=== PATIENT | female | born 1965 | race Caucasian/White ===

== ENCOUNTER 2025-02-19 00:05 | Emergency (ER) | payer OTHER, SELFPAY ==
[2025-02-19] VITALS (12 sets, daily range): BP systolic 148; BP diastolic 100; PULSE 60–137; RESP 12–29; TEMP 35.9–36.4; O2SAT 90–97
--- NOTE | ~2025-02-19 | CT_ITS ---
EXAMINATION: CTA chest PE protocol DATE: 02/19/2025 03:47 INDICATION: Shortness of breath. TECHNIQUE: Computed tomography angiography (CTA) of the chest was performed with 100 mL Omnipaque-350 intravenous contrast timed to evaluate the pulmonary arteries. Coronal maximum intensity projection 3D-reconstructions were created by the technologist. Automated exposure control and iterative reconstruction technique were employed. The dose-length product was 479.97 mGy-cm. COMPARISON: None. FINDINGS: The lungs demonstrate diffuse groundglass opacities. There is a 4 mm nodule in lingula, likely benign. No pleural effusion. Cardiomegaly is noted. No pericardial effusion. There is no pulmonary embolus. There are changes of anterior fusion procedure in cervical spine. There are bridging endplate osteophytes at multiple levels in the spine, consistent with diffuse idiopathic skeletal hyperostosis (DISH). There is mild thoracic spondylosis. IMPRESSION: 1. No pulmonary embolus. 2. Diffuse groundglass opacities in the lungs, consistent with atelectasis versus mild pulmonary edema versus atypical pneumonia. Reviewed, dictated and finalized at location E. NOTCHER IMPRESSION: 1. No pulmonary embolus. 2. Diffuse groundglass opacities in the lungs, consistent with atelectasis vers us mild pulmonary edema versus atypical pneumonia.
--- NOTE | ~2025-02-19 | XR_ITS ---
Examination: XR chest 1V portable Clinical History: SHORTNESS OF BREATH Comparison: None Technique: Portable AP Findings: Heart size normal. Mildly increased interstitial markings. No acute bony abnormality. IMPRESSION: 1. Mild interstitial pulmonary edema and/or pneumonitis. Reviewed, dictated and finalized at location R. RAPHIC INFORMATION SYSTEM ANALYST
--- NOTE | 2025-02-19 00:10 | ED_ITS ---
HPI - Arrhythmia/Palpitations General Chief Complaint: Arrhythmia/Palpitations Stated Complaint: feelings of irregular heart rate Time Seen by Provider: 02/19/25 00:35 History of Present Illness HPI narrative: 59-year-old white previous history of an episode of atrial fibrillation about 4 years ago, apparently converted in the hospital and she was not started on any anticoagulation. At some point in the last few years she was started on Entresto for CHF but has never been on furosemide. January 31 she was admitted to [facility] for a rapid heartbeat, and was found to have a potassium of 2.2 so her potassium was replenished her heart rate controlled and she had an echo, a treadmill thallium stress test, and ?other studies? and was told they were all okay and she was taken off of her chlorthalidone discharge. She was not started on any anticoagulation. She had a previous heart cath 2018 and was told it was normal. Tonight she developed palpitations about 3 hours ago and reports her heartbeat was very fast, irregular, and some of the beats were strong and some of the beats were so weak. She has not had any chest pain, she has felt a little bit short of breath. She has noted some chronic swelling in her lower extremities but concern eyes orthopnea, PND, or dyspnea on exertion. She also denies any recent fever, chills, sinus drainage, sore throat, cough, chest pain, denies any recent abdominal pain, nausea vomiting, diarrhea constipation, dysuria urgency or frequency Related Data Allergies Allergy/AdvReac Type Severity Reaction Status Date / Time Sulfa (Sulfonamide Allergy Intermediate Rash Verified 02/19/25 00:12 Antibiotics) Review of Systems 2 Review of Systems: ROS is negative except as in HPI Exam 2 Narrative: pleasant, well-appearing, overweight, articulate, no acute distress Const: General: cooperative, healthy appearing, comfortable, no acute distress, well developed, alert, awake and Physically active O rientation/consciousness: patient oriented x3 HENMT: Head: normal to inspection, normocephalic and atraumatic Ears: h earing grossly normal bilaterally and external ears normal Face/Nose/Sinus: N ormal external nose present, Normal nares present, Normal nasal mucous membranes and turbinates present and normal facial exam Face and sinus: normal facial exam Mouth: Yes Normal oral and palatal mucosa present, Yes lip normal, Yes tongue normal, Yes oropharynx normal and Yes moist mucous membranes Teeth and gingiva: dentition normal Throat: posterior oropharynx normal and tonsils normal ( erythematous) Eyes: General: appearance normal, both eyes and all related structures A lignment and Position: alignment normal and position normal Periorbital: p eriorbital findings normal Eyelids: eyelids normal Conjunctivae: c onjunctivae normal Sclera: sclerae normal Cornea: corneas normal P upils: Equal, round and reactive pupils present EOM: EOMs intact bilaterally Neck: Neck: normal visual inspection, full ROM and no lymphadenopathy Chest: Chest palpation & inspection: normal inspection of the chest Resp: Effort & Inspection: normal respiratory effort, able to speak in complete sentences, no audible wheezes, no respiratory distress and no use of accessory muscles Auscultation: clear to auscultation bilaterally Cardio: Jugular venous distension: no JVD Rate: abnormal rate and tachycardic Rhythm: abnormal rhythm and abnormal rhythm irregularly irregular GI: Inspection: normal to inspection GI Palp: No abdominal tenderness, No Tenderness to palpation present (GI), No Guarding due to palpation present (GI), No No hepatosplenomegaly present, No Palpable mass present and No Rebound tenderness present Skin: General skin exam: normal color, no rashes or lesions noted, elasticity normal and turgor normal Neuro: General: patient oriented x3, gait normal, tone normal and moves all extremities Cranial nerves: Yes CN's II-XII intact bilaterally, Yes Equal, round and reactive pupils present and Yes Bilaterally intact EOM present S peech: normal speech Motor exam (neuro): 5/5 motor strength present throughout and Normal motor muscle tone present throughout Sensory Exam: n ormal sensation Extrem: General: normal to inspection, normal exam except as noted and pedal edema present (Patient has 1 to 2+ pitting edema of the lower extremities) Psych: Appearance: grossly normal and well kempt Mental Status: mental status grossly normal Speech and movement: Normal speech and movement present Affect: normal affect Attitude: cooperative Thought process: Normal thought process present Course Course Emergency Course: Differential diagnosis includes but is not limited to atrial fibrillation with RVR, CHF, obstructive sleep apnea, hypoxia, PE, TSH, hypokalemia, fluid overload, renal failure, valvular heart disease 12:10 a.m. EKG shows atrial fib with RVR, rate 145. There is a left axis deviation, there is a subtle joint abnormality consistent with pulmonary disease, there is nonspecific STT wave abnormalities. Will give 20 mg diltiazem IV bolus, and then start her on a diltiazem drip. Will also heparinized her Patient converted into sinus rhythm prior to diltiazem and we held off on giving it and also hold off on the heparin did 1 1:07 a.m. EKG after spontaneous conversion shows sinus rhythm, rate of 81, left axis deviation, nonspecific ST T-wave abnormalities Workup showed normal CBC with an H&H of 11.8 and 36.7 and a white count of 7800. INR 0.9 CMP is normal with potassium of 3.5. AST is 51, ALT is 38, both just barely elevated. ProBNP is 269, essentially normal UA is unremarkable D-dimer is minimally elevated at .94, will go ahead and get CT angio chest to rule out PE as a source of her AFib Initial troponin was 2 hour troponin was I discussed atrial fib, concomitant risk of stroke, risks and benefits of anticoagulation, however at this point it appears she has had only 2 or 3 short episodes of AFib in the last 5 years, so risk of stroke is low. Also she had not recent negative echo, negative treadmill thallium stress test. And will hold off on anticoagulation unless that CTA shows PE. We will give her potassium as her K is only 3.5, and will put her on a potassium supplement. Will also hold off on initiating anti dysrhythmic for the same reason that episodes have been rare, short and self limited. Medical decision making complexity and risk is high Vital Signs Vital signs: Vital Signs Temperature 36.4 C 02/19/25 00:05 Pulse Rate 137 H 02/19/25 00:05 Respiratory Rate 19 02/19/25 00:05 Blood Pressure 148/100 H 02/19/25 00:05 Pulse Oximetry 95 02/19/25 00:05 Oxygen Delivery Room Air 02/19/25 00:05 Temperature 35.9 C L 02/19/25 04:35 Pulse Rate 65 02/19/25 04:00 Respiratory Rate 20 02/19/25 04:00 Blood Pressure 148/100 H 02/19/25 00:05 Pulse Oximetry 90 02/19/25 04:00 Oxygen Delivery Room Air 02/19/25 00:05 MDM - Arrhythmia/Palpitations Lab Data 02/19/25 00:49 02/19/25 00:49 Labs: Lab Results 02/19/25 02/19/25 Range/Units 00:49 03:01 WBC 7.8 (4.8-10.8) K/mm3 RBC 4.09 L (4.20-5.40) M/mm3 Hgb 11.8 L (12.0-15.0) g/dL Hct 36.7 (35.0-49.0) % MCV 89.7 (78.0-102.0) fL MCH 28.9 (27.0-31.0) pg MCHC 32.2 (32-36) g/dL RDW 13.7 (11.6-14.4) % Plt Count 322 (150-420) K/mm3 MPV 10.7 (9.2-11.8) fl Immature Gran % (Auto) 0.3 H (0.0-0.0) % Neut % (Auto) 43.3 L (50.0-70.0) % Lymph % (Auto) 39.1 (18.0-42.0) % [place] % (Auto) 10.7 (2.0-11.0) % Eos % (Auto) 5.8 (1.0-6.0) % Baso % (Auto) 0.8 (0.0-1.0) % Lymph # (Auto) 3.06 (1.10-4.50) K/mm3 [place] # (Auto) 0.84 (0.10-0.90) K/mm3 Eos # (Auto) 0.45 (0.02-0.50) K/mm3 Baso # (Auto) 0.06 (0.00-0.10) K/mm3 Abs Immat Gran (auto) 0.02 H (0.00-0.00) K/mm3 Absolute Neuts (auto) 3.39 (1.70-7.20) K/mm3 Absolute Nucleated RBC 0.00 (0.00-0.00) K/mm3 Nucleated RBC % 0.0 (0-0.0) % PT 10.4 (9.50-12.1) Seconds INR 0.9 APTT 27.5 (23.9-30.70) Sec D-Dimer 0.94 H (0.19-0.50) mg/L Sodium 144 (137-145) mmol/L Potassium 3.5 (3.4-5.0) mmol/L Chloride 108 H (98-107) mmol/L Carbon Dioxide 26 (22-30) mmol/L Anion Gap 10 (4-12) mmol/L BUN 13 (7-17) mg/dL Creatinine 0.77 (0.7-1.0) mg/dL Estim Creat Clear Calc 72 ml/min Estimated GFR > 60 (59 - ) Glucose 143 H (65-110) mg/dL Calculated Osmolality 300 H (285-295) mOsm/kg Calcium 9.0 (8.4-10.2) mg/dL Total Bilirubin 0.6 (0.2-1.3) mg/dL AST 51 H (14-36) U/L ALT 38 H (6-35) U/L Alkaline Phosphatase 77 (38-126) U/L Troponin I < 0.012 < 0.012 (0.000-0.034) ng/mL NT-Pro-B Natriuret Pep 269 H (19.9-100) pg/mL Total Protein 7.4 (6.3-8.2) g/dL Albumin 4.1 (3.5-5.1) g/dL Urine Color Light yellow (Yellow) Urine Appearance Clear (Clear) Urine pH 6.5 (5.0-8.0) Ur Specific [place] <= 1.005 L (1.010-1.020) Urine Protein Negative (Negative) Urine Glucose (UA) Negative (Negative) Urine Ketones Negative (Negative) Ur Blood (Man) Negative (Negative) Urine Nitrate Negative (Negative) Urine Bilirubin Negative (Negative) Urine Urobilinogen 0.2 (0.2-1.0) mg/dL Leukocyte Esterase Rfl Negative (Negative) LEONIE/UL Discharge Plan Discharge Clinical Impression: Palpitations, Ventricular premature beats Atrial fibrillation Qualifiers: Atrial fibrillation type: paroxysmal Qualified Code(s): I48.0 - Paroxysmal atrial fibrillation Patient Disposition: Home Condition: Stable Instructions: Antibiotic Form, A-fib (Atrial Fibrillation) (ED), Heart Palpitations (ED) Additional Instructions: No heavy exertion Begin the potassium as prescribed Return to the emergency department if you go back in to atrial fibrillation with a fast heartbeat Follow-up with your chemists this week Patient Language: Irish Prescriptions: New potassium chloride 20 mEq packet 40 meq PO DAILY Qty: 30 0RF Follow-up/Referrals: UNKNOWN,DOCTOR [Primary Care Provider] Time of Disposition: 04:29
--- NOTE | 2025-02-19 00:35 | ECG_ITS ---
Test Date: 2025-02-19 00:10:32 Measurements Intervals [place] Rate: 145 P: 0 [place]: 0 QRS: -36 QRSD: 93 T: 130 QT: 284 QTc: 441 Interpretive Statements ATRIAL FIBRILLATION WITH RAPID VENTRICULAR RESPONSE LEFT AXIS DEVIATION [QRS AXIS < -30] PATTERN CONSISTENT WITH PULMONARY DISEASE MINIMAL VOLTAGE CRITERIA FOR LVH, CONSIDER NORMAL VARIANT [MEETS CRITERIA IN ONE OF: R(aVL), S(V1), R(V5), R(V5/V6)+S(V1)] ST DEVIATION AND MODERATE T-WAVE ABNORMALITY, CONSIDER LATERAL ISCHEMIA [-0.1+ mV T-WAVE IN I/aVL/V5/V6] No previous ECG available for comparison Electronically Signed On 02-19-2025 06:43:14 HEALTH UNIT COORDINATOR by Vinicius Shaikh M.D.
--- OUTSIDE RECORDS SUMMARY | 2025-02-19 00:47 | XMS_ITS | Clinical Summary ---
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 Gender Identity Not on file Sexual Orientation Not on file Plan of Treatment Health Maintenance Due Date Last Done Comments Pap Smear 08/06/1984 Cervical Cancer Screening (CCS) 08/06/1993 HPV/Cotest 08/06/1993 Cologuard 08/06/2008 Immunochemical Fecal Occult Blood 08/06/2008 Zoster Immunization (2 of 2) 08/10/2020 06/15/2020 Influenza Immunization (#1) 11/29/20240 05/2020, 01/07/2019, 01/07/2019, Additional history exists SARS-COV-2 Immunization ( season) 2024 12/19/2020, 11/28/2020 Mammogram 03/02/2025 03/02/2024, 05/2023, 08/21/2023, Additional history exists Colonoscopy 05/22/2032 05/22/2022 Colorectal Cancer Screening 05/22/2032 Respiratory Syncytial Virus (RSV) Immunization (Adult) (1 - 1-dose 75+ series) 08/06/2038 DTaP/Tdap/Td Immunization Discontinued 2020, 04/10/2010, 06/01/1993 TdaP Immunization Completed 07/11/2020, 04/10/2010 Hepatitis C Virus (HCV) Screening Completed 09/11/2021 Pneumococcal Immunization (50+ years) Completed 09/26/2022 Pneumococcal Immunization Combined Discontinued 09/26/2022 Hepatitis B Immunization Aged Out No longer eligible based on patient's age to complete this topic Human Papillomavirus (HPV) Immunization Aged Out No longer eligible based on patient's age to complete this topic Meningococcal Immunization (ACWY) Aged Out No longer eligible based on patient's age to complete this topic Rotavirus Immunization Aged Out No lo nger eligible based on patient's age to complete this topic
--- OUTSIDE RECORDS SUMMARY | 2025-02-19 00:47 | XMS_ITS | Encounter Summary ---
Author Organization [facility] Address [address] [place] [address] Phone Care Team Providers Care Lead Maintenance Technician Name Role Phone Identified, No Provider Primary Care Provider Un available Encounter Details Date Type Department Care Team (Late st Contact Info) Description 04/07/2023 Scanned Document [facility] Provider, Interface Default Social History Tobacco Use Types Packs/Day Years Used Date Smoking Tobacco: Never Smokeless Tobacco: Never Alcohol Use Standard Drinks/Week Comments Never 0 (1 standard drink = 0.6 oz pur e alcohol) Comments Unknown Sex and Gender Information Value Date Recorded Sex Assigned at Not on file 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
--- OUTSIDE RECORDS SUMMARY | 2025-02-19 00:47 | XMS_ITS | Clinical Summary ---
Author Organization [facility] Address [address] [place] [address] Phone Care Team Providers Care Manager Roofing Name Role Phone Identified, No Provider Primary Care Provider Un available Allergies Active Allergy Reactions Criticality Noted Date Comments Pregabalin GI upset,Dizzy Medium 03/27/2021 Sulfa (Sulfonamide Antibiotics) Rash Low 03/01 Medications omeprazole 20 mg delayed release capsule Take 20 mg by mouth 2 (two) times daily Active citalopram (CELEXA) 40 mg tablet Take 40 mg by mouth every day Active linaCLOtide (LINZESS) 72 mcg capsule Take 72 mcg by mouth as needed X 1 dose (IBS) Take on an empty stomach at least 30 minutes prior to a meal at approximately the same time each day Active levothyroxine 100 mcg tablet Take 100 mcg by mouth every day Active furosemide (LASIX) 40 mg tablet Take 40 mg by mouth every day Active sacubitriL-veronica sartan (ENTRESTO) 24-26 mg tablet Take 1 tablet by mouth 2 (two) times daily Active phenazopyridin e (PYRIDIUM) 100 mg tabletIndicati ons:Right ureteral stone Take 1 tablet (100 mg total) by mouth 3 (three) times daily as needed (Dysuria) 12 tablet 3 Active tamsulosin (FLOMAX) 0.4 mg extended release capsuleIndicat ions:Right ureteral stone,Complica ricci UTI (urinary tract infection) Take 1 capsule (0.4 mg total) by mouth every day 30 capsule 3 Active albuterol HFA 90 mcg/actuation inhaler Take 2 puffs inhaled by mouth every 6 hours as needed 2 Active celecoxib (CELEBREX) 100 mg capsule Take 100 mg by mouth every 24 hours 3 Active Active Problems Problem Noted Date Diagnosed Date Right ureteral stone 03/27/2023 Complicated UTI (urinary tract infection) 2022 Immunizations Immunization Administration Dates Next Due Td - Adult (PF) 06/01/1993 Social History Tobacco Use Types Packs/Day Years Used Date Smoking Tobacco: Never Smokeless Tobacco: Never Tobacco Cessation:Counseling Given: Not Answered Alcohol Use Standard Drinks/Week Comments Never 0 (1 standard drink = 0.6 oz pur e alcohol) Comments Unknown Sex and Gender Information Value Date Recorded Sex Assigned at Not on file Legal Sex Female 7:17 AM CALL CENTER CONSULTANT Gender Identity Not on file Sexual Orientation Not on file Last Filed Vital Signs Vital Sign Reading Time Taken Comments Blood Pressure 175/65 03/28/2023 3:40 PM CALL CENTER CONSULTANT Pulse 72 03/28/2023 3:40 PM CALL CENTER CONSULTANT Temperature 37.5 C (99.5 F) 03/28/2023 3:40 PM CALL CENTER CONSULTANT Respiratory Rate 20 03/28/2023 3:40 PM CALL CENTER CONSULTANT Oxygen Saturation 97% 03/28/2023 3:40 PM CALL CENTER CONSULTANT Inhaled Oxygen Concentration - - Weight 90.7 kg (200 lb) 03/27/2023 12:31 AM CALL CENTER CONSULTANT Height 162.6 cm (5' 4) 04/02/2023 2:40 PM CALL CENTER CONSULTANT Body Mass Index 34.33 03/27/2023 12:31 AM CALL CENTER CONSULTANT Plan of Treatment Health Maintenance Due Date Last Done Comments Diagnostic Colonoscopy 1963 MMR Vaccines (1 of 1 - Standard series) 08/06/1964 Lipid Panel 1983 Pap Smear 08/06/1984 Cervical Cancer Screening 08/06/1993 HPV/Co-Testing 08/06/1993 CT Colonography 08/06/2008 Colorectal Cancer Screening 08/06/2008 FIT-DNA (Cologuard) 08/06/2008 Fecal Immunochemical Testing (FIT) 08/06/2008 Fecal Occult Blood (FOBT) 08/06/2008 Flexible Sigmoidoscopy 08/06/2008 Screening Colonoscopy 08/06/2008 HCPOA Document on File 08/06/2013 Zoster (Shingles) Vaccine (2 of 2) 08/10/2020 06/15/2020 Breast Cancer Screening 12/24/2022 12/25/19 22, 12/14/2020, 06/02/2020, Additional history exists Depression Screening 04/02/2024 04/02/2023 COVID-19 Vaccine ( - season) 2024 12/19/2020, 11/28/2020 Influenza Vaccine (#1) 2024 1, 01/07/2019, 01/08/2018, Additional history exists Screening for Diabetes 03/28/2026 3, 03/28/2023, 03/27/2023, Additional history exists DTaP/Tdap/Td Vaccines (3 - Td or Tdap) 07/11/2030 07/11/2020, 04/10/2010, 06/01/1993 RSV Vaccine (60+/) (1 - 1-dose 75+ series) 08/06/2038 Pneumococcal Vaccines (50+) Completed 09/26/2022 HIB Vaccines Aged Out No longer eligi ble based on patient's age to complete this topic HPV Vaccines Aged Out No longer eligi ble based on patient's age to complete this topic Hepatitis A Vaccines Aged Out No long er eligible based on patient's age to complete this topic Hepatitis B Vaccines Aged Out No long er eligible based on patient's age to complete this topic IPV Vaccines Aged Out No longer eligi ble based on patient's age to complete this topic Meningococcal B Vaccine Aged Out No l onger eligible based on patient's age to complete this topic Meningococcal Vaccine (ACWY) Aged Out No longer eligible based on patient's age to complete this topic Rotavirus Vaccines Aged Out No longer eligible based on patient's age to complete this topic Medical Devices Implanted Type Area Upstairs Maid Device Identifier Shelf Expiration Date Model / Serial / Lot Stent Ureteral Firm [id number] Bx/1 - S. Implanted:Qty : 1 on 03/27/2023 by Nicolas Saldaña DO at [facility] LOCATION STENT, URETERAL Right: Ureter 12/25/2025 [id number] / . / [id number] Procedures Procedure Name Priority Date/Time Associated Diagnosis Comments COMPREHENSIVE METABOLIC PANEL Routine 03/28/2023 4:16 AM CALL CENTER CONSULTANT from Last 3 Months or Most Recently Relevant to Health Maintenance Results * (ABNORMAL) COMPREHENSIVE METABOLIC PANEL (03/28/2023 4:16 AM CALL CENTER CONSULTANT) CALCIUM 8.8(L) 8.9 - 10.6 mg/dL [facility] GLUCOSE 175(H) 74 - 100 mg/dL [facility] BUN 15 10 - 20 mg/dL [facility] CREATININE 0.70 0.55 - 1.02 mg/dL [facility] TOTAL PROTEIN 7.1 6.0 - 8.0 g/dL [facility] ALBUMIN 3.1(L) 3.5 - 5.0 g/dL [facility] BILIRUBIN, TOTAL 0.7 0.2 - 1.2 mg/dL [facility] AST 33 5 - 34 U/L [facility] ALT 48 0 - 55 U/L [facility] ALKALINE PHOSPHATASE 89 40 - 150 U/L [facility] SODIUM 137 136 - 145 mmol/L [facility] POTASSIUM 4.0 3.5 - 5.1 mmol/L [facility] CHLORIDE 104 98 - 107 mmol/L [facility] CO2 24.0 22.0 - 29.0 mmol/L [facility] GFR: CKD-EPI 2020 CREAT 99 arbitrary unit [facility] Comment: eGFR of 90 or higher is in the normal range eGFR of 60-89 may mean early-stage kidney disease eGFR of 15-59 may mean kidney disease eGFR below 15 may mean kidney failure NOTE: The GFR estimate is reported in ml/min/1.73 square meters. Effective 08/29/22 the reported GFR estimate is calculated using the CKD-EPI 2020 equation and is intended only for the assessment of chronic kidney disease. [facility], [address] [place] [id number] 03/28/2023 4:16 AM CALL CENTER CONSULTANT 03/28/2023 4:32 AM CALL CENTER CONSULTANT us Robert Montgomery MD HEM/CHEM/IMMUN-BLOOD Final Re sult [facility] [address] [place] [id number], from Last 3 Months or Most Recently Relevant to Health Maintenance Advance Directives For more information, please contact: [phone] * Attempt CPR / Full Treatment (Latest Code Status on File) Date Activated Date Inactivated Comments 03/27/2023 2:07 AM 03/28/2023 6:48 PM Care Teams Manager Roofing Relationship Specialty Start Date End Date Identified, No Provider PCP - General 03/26/23
[2025-02-19 00:58] LABS: Add Urine Microscopic? NO; Appearance Urine Clear (Clear); Glucose Urine UA Negative (Negative); Hematocrit 36.7 % (35.0-49.0); Hemoglobin 11.8 g/dL (12.0-15.0); Immature Granulocyte Percent A 0.3 % (0.0-0.0); Leukocyte Esterase Ur Negative LEU/UL (Negative); Lymphocytes Absolute Auto 3.06 K/mm3 (1.10-4.50); Mean Corpuscular HGB Conc 32.2 g/dL (32-36); Mean Corpuscular Hemoglobin 28.9 pg (27.0-31.0); Mean Corpuscular Volume 89.7 fL (78.0-102.0); Nitrate Urine Negative (Negative); Nucleated Red Blood Cells Absolute Auto 0.00 K/mm3 (0.00-0.00); Nucleated Red Blood Cells Perc 0.0 % (0-0.0); Platelet Count Result 322 K/mm3 (150-420); Red Blood Count 4.09 M/mm3 (4.20-5.40); Specific Grav Ur <= 1.005 (1.010-1.020); White Blood Count 7.8 K/mm3 (4.8-10.8)
[2025-02-19 01:09] LABS: Alanine Aminotransferase 38 U/L (6-35); Albumin Level 4.1 g/dL (3.5-5.1); Alkaline Phosphatase 77 U/L (38-126); Anion Gap 10 mmol/L (4-12); Aspartate Amino Transferase 51 U/L (14-36); Bilirubin,Total 0.6 mg/dL (0.2-1.3); Blood Urea Nitrogen 13 mg/dL (7-17); Calcium 9.0 mg/dL (8.4-10.2); Carbon Dioxide 26 mmol/L (22-30); Chloride 108 mmol/L (98-107); Estimated CRCL calculation 72 ml/min; Estimated Glomerular Filt Rate > 60; Glucose 143 mg/dL (65-110); Osmolality Calculated 300 mOsm/kg (285-295); Potassium 3.5 mmol/L (3.4-5.0); Sodium 144 mmol/L (137-145); Total Protein 7.4 g/dL (6.3-8.2)
--- NOTE | 2025-02-19 01:10 | PC.NURSE ---
Pt's heart rhythm converted back from AFIB to Sinus Rhythm. ERP notified. ERP gave verbal order to hold meds until repeat Troponin at 0335hrs or change in heart rhythm. Will notify ERP of any changes.
[2025-02-19 01:13] LABS: INR 0.9; Partial Thromboplastin Time 27.5 Sec (23.9-30.70); Prothrombin Time 10.4 Seconds (9.50-12.1)
--- NOTE | 2025-02-19 01:13 | ECG_ITS ---
Test Date: 2025-02-19 01:07:26 Measurements Intervals [place] Rate: 81 P: 32 NE: 172 QRS: -33 QRSD: 94 T: 52 QT: 350 QTc: 409 Interpretive Statements SINUS RHYTHM LEFT AXIS DEVIATION [QRS AXIS < -30] LOW QRS VOLTAGE IN PRECORDIAL LEADS [QRS DEFLECTION < 1.0 mV IN CHEST LEADS] LEFT VENTRICULAR HYPERTROPHY AND ST-T CHANGE [VOLTAGE CRITERIA PLUS ST/T ABNORMALITY] Poor R wave progression Electronically Signed On 02-19-2025 06:43:37 CONVERTING OPERATOR by Vinicius Shaikh M.D.
[2025-02-19 01:18] LABS: NT Pro B Type Natriuretic Pept 269 pg/mL (19.9-100)
[2025-02-19 01:21] LABS: Troponin I < 0.012 ng/mL (0.000-0.034)
[2025-02-19 03:33] LABS: Troponin I < 0.012 ng/mL (0.000-0.034)
[2025-02-19] MEDS: POTASSIUM CHLORIDE 20 MEQ ER TABLET 40 MEQ PO (03:48)
== END 2025-02-19 04:41 | disposition home or self-care (01) ==
PROVIDERS: Emergency Provider Emergency Medicine
DX: I48.0 Paroxysmal atrial fibrillation (principal); I49.40 Unspecified premature depolarization
CPT/HCPCS: 36415; 71045; 71275; 80053; 81003; 83880; 84484; 85025; 85380; 85610; 85730; 93005; 99284; A9270; Q9967